=== PATIENT | female | born 1965 | race Two or more races ===

== ENCOUNTER 2024-03-21 04:45 | Emergency (ER) | payer OTHER ==
[~2024-03-21] VITALS: Ht 165.1 cm; Wt 74.8 kg
[2024-03-21] MEDS ORDERED: ONDANSETRON HCL/PF 4 MG/2 ML VIAL ONE (05:13)
[2024-03-21] MEDS ORDERED: MECLIZINE HCL 25 MG TABLET ONE (05:13)
[2024-03-21] MEDS: ONDANSETRON HCL/PF 4 MG/2 ML VIAL IVP ONE (05:16)
[2024-03-21] MEDS: MECLIZINE HCL 12.5 MG TABLET PO ONE (05:42)
[2024-03-21 05:52] LABS: BASOPHILS # (AUTO) 0.1 K/uL (0.0-0.2); BASOPHILS % (AUTO) 1.8 % (0.0-2.0); EOSINOPHILS # (AUTO) 0.1 K/uL (0.0-0.7); EOSINOPHILS % (AUTO) 2.2 % (0.0-6.0); HEMATOCRIT 37 % (33-45); HEMOGLOBIN 12.8 g/dL (11.5-14.8); LYMPHOCYTES # (AUTO) 2.9 K/uL (0.8-4.8); LYMPHOCYTES % (AUTO) 56.5 % (20.0-44.0); MEAN CORPUSCULAR HEMOGLOBIN 33 PG (26.0-33.0); MEAN CORPUSCULAR HGB CONC 34 g/dl (31.0-36.0); MEAN CORPUSCULAR VOLUME 96 fL (82-100); MONOCYTES # (AUTO) 0.5 K/uL (0.1-1.30); MONOCYTES % (AUTO) 8.9 % (2.0-12.0); NEUTROPHILS # (AUTO) 1.6 K/uL (1.8-8.9); NEUTROPHILS % (AUTO) 30.6 % (43.0-81.0); PLATELET COUNT (AUTO) 233 K/uL (150-450); RED BLOOD CELL COUNT(AUTO) 3.89 MIL/uL (4.0-5.2); RED CELL DISTRIBUTION WIDTH 13.7 % (11.5-15.0); WHITE BLOOD COUNT (AUTO) 5.1 K/uL (4.3-11.0)
[2024-03-21 05:59] LABS: CALCIUM, SERUM 8.7 mg/dL (8.5-10.1); CARBON DIOXIDE 30 mmol/L (21-32); CHLORIDE 96 mmol/L (98-107); CREATININE 0.6 mg/dL (0.6-1.3); GLUCOSE 123 mg/dL (74-106); POTASSIUM 3.5 mmol/L (3.5-5.1); SODIUM SERUM 133 mmol/L (136-145); UREA NITROGEN, BLOOD 26 mg/dL (7-18)
[2024-03-21 06:04] LABS: INR 0.95 (0.91-1.10); PARTIAL THROMBOPLASTIN TIME 26.1 SEC (24.3-34.3); PROTHROMBIN TIME 10.1 SECS (9.2-11.1)
[2024-03-21] MEDS: IV NS 0.9% 1,000 ML BAG IV ONE (06:56)
[2024-03-21] MEDS ORDERED: MECL-182 PO (07:23)
[2024-03-21] MEDS ORDERED: ONDA4TAB11 PO (07:23)
[2024-03-21 07:44] VITALS: BP 121/71; TEMP 98; O2SAT 99
== END 2024-03-21 07:44 | disposition home or self-care (01) ==
LOC: ER 04:51 → EDBD 04:51 → ER 07:44
DX: R42 Dizziness and giddiness (principal); R11.0 Nausea; R06.00 Dyspnea, unspecified; R51.9 Headache, unspecified; E03.9 Hypothyroidism, unspecified; I10 Essential (primary) hypertension; K21.9 Gastro-esophageal reflux disease without esophagitis; F41.9 Anxiety disorder, unspecified
CPT/HCPCS: 99285; 96374; 70450; 71045; 96361; 93005; 85025; 80048; 36415; 84484; 85730; 82962; J8597; J2405; J7030